=== PATIENT | female | born 1945 | race Caucasian/White ===

== ENCOUNTER 2017-12-27 12:39 | Emergency (ER) | payer MEDICARE ==
[~2017-12-27] VITALS: Ht 165.1 cm; Wt 66.4 kg
[~2017-12-27 12:39] MED LIST: B12 INJECTIONS; LORTA5 PO; LOVA1TAB47 PO; PROT40TA PO
[2017-12-27 12:48] VITALS: BP 148/77; PULSE 85; RESP 12; TEMP 98.4; O2SAT 96
[2017-12-27] MEDS ORDERED: TRAZ50TA12 PO (13:10)
[2017-12-27] MEDS ORDERED: LOVA10TA PO (13:10)
[2017-12-27] MEDS ORDERED: AMLO5TAB2 PO (13:10)
[2017-12-27] MEDS ORDERED: PANT40TA3 PO (13:10)
[2017-12-27] MEDS ORDERED: LEVO50TA4 PO (13:10)
--- NOTE | 2017-12-27 14:02 | PD ---
HPI Chief Complaint: Pain: Acute or Chronic Time Seen by Provider: 13:25 Travel History International Travel<30 days: No Contact w/Intl Traveler<30days: No Traveled to known affect area: No History of Present Illness HPI This 72-year-old female is complaining of pain in the left leg. She has some burning and swelling there but noted a bruise on the leg. She has no history of DVT. She does bruise quite often. patient is not on any blood thinners. She does have a history of anemia gets B12 shots twice a day. She says that last night she had quite severe pain over the lower sternal/epigastric area. It lasted over an hour. She thought it was related to hiatal hernia. She took 6-10 Tums and Protonix without much response. The pain did eventually subside. It radiated to her back. It was a little bit worse on the right side of the abdomen. She is not having the pain PFSH Past Medical History Anemia: Yes Asthma: No Blood Disorders: Yes (CHRONIC ANEMIA,TAKES B12 SHOT MONTHLY) Heart Rhythm Problems: No Cancer: No Cardiovascular Problems: Yes (HTN) High Cholesterol: Yes Chemotherapy: No Chest Pain: No Congestive Heart Failure: No COPD: No Cerebrovascular Accident: No Diminished Hearing: No Endocrine: No Gastrointestinal Disorders: Yes GERD: Yes Glaucoma: Yes Genitourinary: No Headaches: No Hepatitis: No Hiatal Hernia: Yes Hypertension: No Immune Disorder: No Musculoskeletal: No Neurologic: No Psychiatric: No Reproductive: No Respiratory: Yes (COPD) Myocardial Infarction: No Radiation Therapy: No Seizures: No Sleep Apnea: No Ulcer: No ?: Not : 2 Para: 2 Past Surgical History Abdominal Surgery: Yes (APPENDECTOMY) AICD: No Appendectomy: Yes Cardiac Surgery: No Ear Surgery: No Endocrine Surgery: No Eye Surgery: No Genitourinary Surgery: No Gynecologic Surgery: Yes (ANTERIOR/POSTERIOR REPAIR, BOWEL LIFT) Hysterectomy: Yes Insulin Pump: No Joint Replacement: No Neurologic Surgery: No Oral Surgery: Yes (PERMANENT BRIDGES) Pacemaker: No Thoracic Surgery: No Other Surgery: Yes (neck lift, vaginal tuck with mesh) Social History Alcohol Use: Yes (RARELY) Tobacco Use: No (QUIT 11/2011) Substance Use: No Allergies-Medications (Allergen,Severity, Reaction): Coded Allergies: ranitidine (Unverified Allergy, Mild, FLUSHING,ITCHING, 05/07/17) Reported Meds & Prescriptions Reported Meds & Active Scripts Active Reported Trazodone (Trazodone HCl) 50 Mg Tab 50 Mg PO DAILY Amlodipine (Amlodipine Besylate) 5 Mg Tab 5 Mg PO DAILY Pantoprazole (Pantoprazole Sodium) 40 Mg Tab 40 Mg PO DAILY Lovastatin 10 Mg Tab 10 Mg PO DAILY@1600 Levothyroxine (Levothyroxine Sodium) 50 Mcg Tab 50 Mcg PO DAILY [B12 Injections] Review of Systems General / Constitutional: No: Fever, Chills Eyes: No: Diploplia, Blurred Vision HENT: No: Headaches, Vertigo Cardiovascular: Positive: Chest Pain or Discomfort Respiratory: No: Cough Gastrointestinal: Positive: Abdominal Pain Genitourinary: No: Urgency, Frequency Musculoskeletal: Positive: Pain Skin: No Rash Neurologic: No: Weakness Endocrine: No: Heat Intolerance Hematologic/Lymphatic: Positive: Easy Bruising Physical Exam Narrative GENERAL: Well-developed female SKIN: Focused skin assessment warm/dry. HEAD: Atraumatic. Normocephalic. EYES: Pupils equal and round. No scleral icterus. No injection or drainage. ENT: No nasal bleeding or discharge. Mucous membranes pink and moist. NECK: Trachea midline. No JVD. CARDIOVASCULAR: Regular rate and rhythm. No murmur appreciated. RESPIRATORY: No accessory muscle use. Clear to auscultation. Breath sounds equal bilaterally. GASTROINTESTINAL: Abdomen soft, non-tender, nondistended. Hepatic and splenic margins not palpable. MUSCULOSKELETAL: No obvious deformities. No clubbing. No cyanosis. No edema. There is some ecchymosis and swelling in the midportion of the medial calf. Distal pulses are intact NEUROLOGICAL: Awake and alert. No obvious cranial nerve deficits. Motor grossly within normal limits. Normal speech. PSYCHIATRIC: Appropriate mood and affect; insight and judgment normal. Data Data Last Documented VS Vital Signs Date Time Temp Pulse Resp B/P (MAP) Pulse Ox O2 Delivery O2 Flow Rate FiO2 12/27/17 14:45 123/69 (87) 12/27/17 13:02 18 12/27/17 12:48 98.4 85 96 Orders Orders Us Abdomen Gallbladder (12/27/17 13:59) Us Leg Venous Doppler (12/27/17 13:59) Electrocardiogram (12/27/17 13:59) Complete Blood Count With Diff (12/27/17 13:59) Comprehensive Metabolic Panel (12/27/17 13:59) Troponin I (12/27/17 13:59) Lipase (12/27/17 13:59) Labs Laboratory Tests Test 12/27/17 14:16 White Blood Count 7.2 TH/MM3 Red Blood Count 4.20 MIL/MM3 Hemoglobin 13.6 GM/DL Hematocrit 39.9 % Mean Corpuscular Volume 94.9 FL Mean Corpuscular Hemoglobin 32.5 PG Mean Corpuscular Hemoglobin Concent 34.3 % Red Cell Distribution Width 13.6 % Platelet Count 215 TH/MM3 Mean Platelet Volume 9.3 FL Neutrophils (%) (Auto) 55.9 % Lymphocytes (%) (Auto) 34.9 % Monocytes (%) (Auto) 5.8 % Eosinophils (%) (Auto) 1.3 % Basophils (%) (Auto) 2.1 % Neutrophils # (Auto) 4.0 TH/MM3 Lymphocytes # (Auto) 2.5 TH/MM3 Monocytes # (Auto) 0.4 TH/MM3 Eosinophils # (Auto) 0.1 TH/MM3 Basophils # (Auto) 0.2 TH/MM3 CBC Comment DIFF FINAL Differential Comment Blood Urea Nitrogen 13 MG/DL Creatinine 0.75 MG/DL Random Glucose 80 MG/DL Total Protein 6.9 GM/DL Albumin 3.6 GM/DL Calcium Level 9.1 MG/DL Alkaline Phosphatase 69 U/L Aspartate Amino Transf (AST/SGOT) 22 U/L Alanine Aminotransferase (ALT/SGPT) 31 U/L Total Bilirubin 0.2 MG/DL Sodium Level 138 MEQ/L Potassium Level 3.9 MEQ/L Chloride Level 101 MEQ/L Carbon Dioxide Level 26.8 MEQ/L Anion Gap 10 MEQ/L Estimat Glomerular Filtration Rate 76 ML/MIN Troponin I LESS THAN 0.02 NG/ML Lipase 96 U/L MDM Medical Decision Making Medical Screen Exam Complete: Yes Emergency Medical Condition: Yes Medical Record Reviewed: Yes Differential Diagnosis Differential includes cardiac pain, GERD, biliary disease, DVT Narrative Course EKG and troponin, ultrasound of gallbladder and leg are ordered. EKG and troponin are normal. Diagnosis Primary Impression: Contusion of leg Ag Oviedo MD Dec 27, 2017 14:02
[2017-12-27 14:33] LABS: BASOPHIL # 0.2 TH/MM3 (0-0.2); BASOPHIL % 2.1 % (0.0-2.0); EOSINOPHIL # 0.1 TH/MM3 (0-0.4); EOSINOPHIL % 1.3 % (0.0-4.0); HEMATOCRIT 39.9 % (35.0-46.0); HEMOGLOBIN 13.6 GM/DL (11.6-15.3); LYMPH % 34.9 % (9.0-44.0); LYMPHOCYTE # 2.5 TH/MM3 (1.0-4.8); MEAN CELL VOLUME 94.9 FL (80.0-100.0); MEAN CORPUSCULAR HEMOGLOBIN 32.5 PG (27.0-34.0); MEAN CORPUSCULAR HGB CONC 34.3 % (32.0-36.0); MEAN PLATELET VOLUME 9.3 FL (7.0-11.0); MONO % 5.8 % (0.0-8.0); MONOCYTE # 0.4 TH/MM3 (0-0.9); NEUT % 55.9 % (16.0-70.0); PLATELET COUNT 215 TH/MM3 (150-450); RED CELL DISTRIBUTION WIDTH 13.6 % (11.6-17.2); WHITE BLOOD COUNT 7.2 TH/MM3 (4.0-11.0)
[2017-12-27 14:35] LABS: CHLORIDE 101 MEQ/L (98-107); SODIUM (NA) 138 MEQ/L (136-145)
[2017-12-27 14:38] LABS: CALCIUM 9.1 MG/DL (8.5-10.1)
[2017-12-27 14:39] LABS: ALBUMIN 3.6 GM/DL (3.4-5.0); BICARBONATE 26.8 MEQ/L (21.0-32.0); BLOOD UREA NITROGEN 13 MG/DL (7-18); GLUCOSE,RANDOM 80 MG/DL (74-106)
[2017-12-27 14:42] LABS: ALT (GPT) 31 U/L (10-53); AST (GOT) 22 U/L (15-37); CREATININE 0.75 MG/DL (0.50-1.00); GLOMERULAR FILTRATION RATE 76 ML/MIN (>89)
[2017-12-27 14:43] LABS: TOTAL BILIRUBIN ADULT 0.2 MG/DL (0.2-1.0); TOTAL PROTEIN 6.9 GM/DL (6.4-8.2)
[2017-12-27 14:45] VITALS: BP 123/69
[2017-12-27 14:45] LABS: ALKALINE PHOSPHATASE 69 U/L (45-117)
[2017-12-27 14:47] LABS: TROPONIN I LESS THAN 0.02 NG/ML (0.02-0.05)
--- NOTE | 2017-12-27 15:20 | RADRPT ---
EXAM DATE/TIME: 12/27/2017 14:25 [facility] COMPARISON: No previous studies available for comparison. INDICATIONS : Right upper quadrant pain. MEDICAL HISTORY : Hypertension. Chronic obstructive pulmonary disease. Hypercholesterolemia. Chromic anemia. Hiatal her tay. SURGICAL HISTORY : Appendectomy. Hysterectomy. Bowel lift. Vaginal surgery with mesh. Neck lift. ENCOUNTER: Initial ACUITY: 4-6 days PAIN SCORE: 4/10 LOCATION: Right upper quadrant MEASUREMENTS: LIVER: 15.5 cm length COMMON DUCT: 4 mm RIGHT KIDNEY: 10.1 x 4.3 x 3.7 cm FINDINGS: LIVER: Multiple, simple hepatic cyst with a 2.4 x 2.1 x 2.1 cm lesion in the left lobe and a 1.5 x 0.9 x 1.0 cm lesion in the right lobe. No ductal dilatation. COMMON DUCT: No intraluminal mass or stone visualized. GALLBLADDER: Some echogenic debris within the gallbladder fundus probably represents sludge. No mural thickening o r pericholecystic fluid PANCREAS: The visualized portions are within normal limits. RIGHT KIDNEY: No evidence of hydronephrosis, stone, or mass. CONCLUSION: 1. Simple hepatic cysts. 2. Small amount of gallbladder sludge. No gallbladder wall thickening, stones or pericholecystic flui dDiamond Daniels MD on December 27, 2017 at 15:15 Board Certified Radiologist. This report was verified electronically.
--- NOTE | 2017-12-27 15:34 | RADRPT ---
EXAM DATE/TIME: 12/27/2017 14:38 [facility] COMPARISON: No previous studies available for comparison. INDICATIONS : Left leg swelling. MEDICAL HISTORY : Hypercholesterolemia. Hypertension. Chronic obstructive pulmonary disease. Chromic anemia. Hiatal hernia. SURGICAL HISTORY : Appendectomy. Hysterectomy. Bowel lift. Vaginal surgery with mesh. Neck lift. ENCOUNTER: Initial ACUITY: 1 day PAIN SCORE: 0/10 LOCATION: Left leg. TECHNIQUE: Venous ultrasound of the leg was performed from the inguinal ligament to the proximal calf. Real-ketan e, color Doppler and spectral tracing, compression and augmentation techniques were used. FINDINGS: There is normal compressibility of the deep venous system from the inguinal region to the proximal ca lf. No echogenic clot is seen in the lumen of the common femoral, femoral, popliteal, and posterior tibial veins. There is a normal response of the venous system to proximal and distal augmentation an d respiration. CONCLUSION: Negative exam. No sonographic or Doppler findings of deep venous thrombosis. Mauro Daniels MD on December 27, 2017 at 15:31 Board Certified Radiologist. This report was verified electronically.
--- NOTE | 2017-12-27 16:11 | PD ---
Physical Exam Date Seen by Provider: Dec 27, 2017 Data Data Last Documented VS Vital Signs Date Time Temp Pulse Resp B/P (MAP) Pulse Ox O2 Delivery O2 Flow Rate FiO2 12/27/17 14:45 123/69 (87) 12/27/17 13:02 18 12/27/17 12:48 98.4 85 96 Orders Orders Us Abdomen Gallbladder (12/27/17 13:59) Us Leg Venous Doppler (12/27/17 13:59) Electrocardiogram (12/27/17 13:59) Complete Blood Count With Diff (12/27/17 13:59) Comprehensive Metabolic Panel (12/27/17 13:59) Troponin I (12/27/17 13:59) Lipase (12/27/17 13:59) Labs Laboratory Tests Test 12/27/17 14:16 White Blood Count 7.2 TH/MM3 Red Blood Count 4.20 MIL/MM3 Hemoglobin 13.6 GM/DL Hematocrit 39.9 % Mean Corpuscular Volume 94.9 FL Mean Corpuscular Hemoglobin 32.5 PG Mean Corpuscular Hemoglobin Concent 34.3 % Red Cell Distribution Width 13.6 % Platelet Count 215 TH/MM3 Mean Platelet Volume 9.3 FL Neutrophils (%) (Auto) 55.9 % Lymphocytes (%) (Auto) 34.9 % Monocytes (%) (Auto) 5.8 % Eosinophils (%) (Auto) 1.3 % Basophils (%) (Auto) 2.1 % Neutrophils # (Auto) 4.0 TH/MM3 Lymphocytes # (Auto) 2.5 TH/MM3 Monocytes # (Auto) 0.4 TH/MM3 Eosinophils # (Auto) 0.1 TH/MM3 Basophils # (Auto) 0.2 TH/MM3 CBC Comment DIFF FINAL Differential Comment Blood Urea Nitrogen 13 MG/DL Creatinine 0.75 MG/DL Random Glucose 80 MG/DL Total Protein 6.9 GM/DL Albumin 3.6 GM/DL Calcium Level 9.1 MG/DL Alkaline Phosphatase 69 U/L Aspartate Amino Transf (AST/SGOT) 22 U/L Alanine Aminotransferase (ALT/SGPT) 31 U/L Total Bilirubin 0.2 MG/DL Sodium Level 138 MEQ/L Potassium Level 3.9 MEQ/L Chloride Level 101 MEQ/L Carbon Dioxide Level 26.8 MEQ/L Anion Gap 10 MEQ/L Estimat Glomerular Filtration Rate 76 ML/MIN Troponin I LESS THAN 0.02 NG/ML Lipase 96 U/L [facility] Medical Record Reviewed: Yes Supervised Visit with LAURA: No Interpretation(s) Laboratory Tests Test 12/27/17 14:16 White Blood Count 7.2 TH/MM3 (4.0-11.0) Red Blood Count 4.20 MIL/MM3 (4.00-5.30) Hemoglobin 13.6 GM/DL (11.6-15.3) Hematocrit 39.9 % (35.0-46.0) Mean Corpuscular Volume 94.9 FL (80.0-100.0) Mean Corpuscular Hemoglobin 32.5 PG (27.0-34.0) Mean Corpuscular Hemoglobin Concent 34.3 % (32.0-36.0) Red Cell Distribution Width 13.6 % (11.6-17.2) Platelet Count 215 TH/MM3 (150-450) Mean Platelet Volume 9.3 FL (7.0-11.0) Neutrophils (%) (Auto) 55.9 % (16.0-70.0) Lymphocytes (%) (Auto) 34.9 % (9.0-44.0) Monocytes (%) (Auto) 5.8 % (0.0-8.0) Eosinophils (%) (Auto) 1.3 % (0.0-4.0) Basophils (%) (Auto) 2.1 % (0.0-2.0) Neutrophils # (Auto) 4.0 TH/MM3 (1.8-7.7) Lymphocytes # (Auto) 2.5 TH/MM3 (1.0-4.8) Monocytes # (Auto) 0.4 TH/MM3 (0-0.9) Eosinophils # (Auto) 0.1 TH/MM3 (0-0.4) Basophils # (Auto) 0.2 TH/MM3 (0-0.2) CBC Comment DIFF FINAL Differential Comment Blood Urea Nitrogen 13 MG/DL (7-18) Creatinine 0.75 MG/DL (0.50-1.00) Random Glucose 80 MG/DL (74-106) Total Protein 6.9 GM/DL (6.4-8.2) Albumin 3.6 GM/DL (3.4-5.0) Calcium Level 9.1 MG/DL (8.5-10.1) Alkaline Phosphatase 69 U/L (45-117) Aspartate Amino Transf (AST/SGOT) 22 U/L (15-37) Alanine Aminotransferase (ALT/SGPT) 31 U/L (10-53) Total Bilirubin 0.2 MG/DL (0.2-1.0) Sodium Level 138 MEQ/L (136-145) Potassium Level 3.9 MEQ/L (3.5-5.1) Chloride Level 101 MEQ/L (98-107) Carbon Dioxide Level 26.8 MEQ/L (21.0-32.0) Anion Gap 10 MEQ/L (5-15) Estimat Glomerular Filtration Rate 76 ML/MIN (>89) Troponin I LESS THAN 0.02 NG/ML Lipase 96 U/L (73-393) Vital Signs Date Time Temp Pulse Resp B/P (MAP) Pulse Ox O2 Delivery O2 Flow Rate FiO2 12/27/17 14:45 123/69 (87) 12/27/17 13:02 18 12/27/17 12:48 98.4 85 12 148/77 (100) 96 Last Impressions Lower Extremity Ultrasound 12/27/17 [id number] Signed Impressions: Service Date/Time: Wednesday, December 27, 2017 14:38 - CONCLUSION: Negative exam. No sonographic or Doppler findings of deep venous thrombosis. Mauro Daniels MD Gall Bladder Ultrasound 12/27/17 [id number] Signed Impressions: Service Date/Time: Wednesday, December 27, 2017 14:25 - CONCLUSION: 1. Simple hepatic cysts. 2. Small amount of gallbladder sludge. No gallbladder wall thickening, stones or pericholecystic fluid. Mauro Daniels MD Differential Diagnosis DVT, GERD, biliary disease, ACS Narrative Course Please see Dr. Oviedo's previous chart for full hpi Patient is a 72-year-old male presents to emergency room with multiple complaints. Patient initially complained of pain and swelling to left lower extremity, and ultrasound was performed which was negative for DVT. Patient with no history of DVT in the past, she currently is not on any blood thinners, she does have a bruise to her leg, there is no obvious fall or trauma to her lower extremity. Patient's hemoglobin is 13.3, hematocrit 39.9, platelets 215 CBC & BMP Diagram 12/27/17 14:16 Total Protein 6.9, Albumin 3.6, Calcium Level 9.1, Alkaline Phosphatase 69, Aspartate Amino Transf (AST/SGOT) 22, Alanine Aminotransferase (ALT/SGPT) 31, Total Bilirubin 0.2 Last Impressions Lower Extremity Ultrasound 12/27/17 [id number] Signed Impressions: Service Date/Time: Wednesday, December 27, 2017 14:38 - CONCLUSION: Negative exam. No sonographic or Doppler findings of deep venous thrombosis. Mauro Daniels MD Gall Bladder Ultrasound 12/27/17 [id number] Signed Impressions: Service Date/Time: Wednesday, December 27, 2017 14:25 - CONCLUSION: 1. Simple hepatic cysts. 2. Small amount of gallbladder sludge. No gallbladder wall thickening, stones or pericholecystic fluid. Mauro Daniels MD Patient also complains of epigastric pain which has since resolved, patient with history of GERD. EKG shows normal sinus rhythm at 62 bpm, first-degree AV block, no acute ST or T-wave changes, lab work was benign. Patient also had an ultrasound of her gallbladder which showed simple hepatic cysts as well as small sludge in the gallbladder, no gallbladder wall thickening, stones or pericholecystic fluid. I reviewed all labs and also to the patient in detail, patient is feeling much better this time and requests to be discharged. Signs and symptoms of when to return to the emergency room was reviewed with patient in detail, in the meantime she will follow-up with her primary care doctor. Patient was given a copy of her lab work and studies at discharge Diagnosis Primary Impression: Contusion of leg Qualified Codes: S80.12XA - Contusion of left lower leg, initial encounter Patient Instructions: General Instructions Additional Instruction: Please provide patient with a copy of their lab work and studies at discharge* * Please follow up with your primary care doctor in 2-3 days Return to the ER if symptoms worsen or progress Return to the ER as needed Please have the ultrasound of your leg repeated in 1 week if swelling/pain persists Disposition: 01 DISCHARGE HOME Condition: Stable Dolly Benderfer Carmen SHARMA Dec 27, 2017 16:11
--- NOTE | 2017-12-28 17:22 | EKG ---
Date Performed: 12/27/2017 Time Performed: 15:00:18 PTAGE: 72 years EKG: Sinus rhythm WITH FIRST DEGREE AV BLOCK Compared to previous tracing, PA interval is slightly longer, otherwise n o significant change ABNORMAL ECG PREVIOUS TRACING : 10/20/2012 23.34 DOCTOR: Ronald Girard Interpretating Date/Time 12/28/2017 17:20:44
== END 2017-12-27 16:23 | disposition home or self-care (01) ==
LOC: PHED 12:39
DX: S80.12XA Contusion of left lower leg, initial encounter (principal); R10.13 Epigastric pain; I44.0 Atrioventricular block, first degree; R94.31 Abnormal electrocardiogram [ECG] [EKG]; K21.9 Gastro-esophageal reflux disease without esophagitis; K76.89 Other specified diseases of liver; I10 Essential (primary) hypertension; Z87.891 Personal history of nicotine dependence; X58.XXXA Exposure to other specified factors, initial encounter
CPT/HCPCS: 76705; 80053; 83690; 84484; 85025; 93005; 93971; 99285